=== PATIENT | female | born 2005 | race Caucasian/White ===

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

== ENCOUNTER 2023-04-06 16:08 | Outpatient (CLI) | payer BC, OTHER, SELFPAY ==
--- NOTE | ~2023-04-06 | XR_ITS ---
EXAMINATION: XR wrist RT min 3V DATE: 04/06/2023 16:53 INDICATION: Right wrist pain. TECHNIQUE: 4 views of right wrist were obtained. COMPARISON: None. FINDINGS: Bone alignment is normal. No fracture. Joint spaces are normal. No radiopaque foreign body. IMPRESSION: 1. Normal right wrist. Reviewed, dictated and finalized at [facility]. IMPRESSION: 1. Normal right wrist.
== END 2023-04-06 16:09 | disposition home or self-care (01) ==
LOC: CHSIMG 16:10
PROVIDERS: PCP Internal Medicine; Visit Provider Nurse Practitioner Family
DX: M25.531 Pain in right wrist (principal)
CPT/HCPCS: 73110